=== PATIENT | female | born 1990 | race Caucasian/White ===

== ENCOUNTER 2023-03-20 09:00 | Outpatient (NON) | payer OTHER, SELFPAY | END 2023-03-20 09:01 | disposition home or self-care (01) | LOC: ANHLAB 03-21 11:48 | PROVIDERS: PCP Family Medicine; Visit Provider Nurse Practitioner | DX: R22.9 Localized swelling, mass and lump, unspecified (principal); D48.5 Neoplasm of uncertain behavior of skin | CPT/HCPCS: 88304; 88305 ==

== ENCOUNTER 2023-04-16 15:35 | Outpatient (NON) | payer OTHER, SELFPAY | END 2023-04-16 15:36 | disposition home or self-care (01) | LOC: ANHLAB 15:36 | PROVIDERS: PCP Family Medicine; Visit Provider Nurse Practitioner | DX: D22.9 Melanocytic nevi, unspecified (principal) | CPT/HCPCS: 88305 ==

== ENCOUNTER 2024-12-01 10:01 | Outpatient (CLI) | payer OTHER, SELFPAY ==
--- OUTSIDE RECORDS SUMMARY | 2024-12-01 10:51 | XMS_ITS | Clinical Summary ---
Author Organization [facility] [employer] Address [address] [place] [address] Care Team Providers Care Sales Service Representative Name Role Phone Unavailable Primary Care Provider Unavailabl e Source Comments [facility] [employer],non-owned Affiliates and Associated Physician Practices is amultiple site organization consisting of ambulatory clinics and hospital sitesin [place], [place], [place] and [place]. This disclosure is being madepursuant to the Care Everywhere program and may not contain all information available regarding this patient. Last updated 18.[facility] [employer] Allergies No known active allergies Medications * Be aware that medications may not be up to date on this document. Alwaysverify current medications with the patient. hydroxychloroqui ne (Plaquenil) 200 MG tablet Take 1 (one) tablet by mouth 2 times daily 05/03/2023 Active MAGNESIUM OXIDE 400 PO Take 400 mg by mouth once daily Active cetirizine (ZyrTEC) 10 MG tabletIndication s:Nasal congestion Take 1 (one) tablet by mouth once daily 30 tablet 06/04/2023 Active Cyanocobalamin (Rapid B-12 Energy) 200 MCG/SPRAY Active COLLAGEN-VITAMIN C-BIOTIN PO Take by mouth once daily Active folic acid 400 MCG tablet Take by mouth once daily Active Encounters Date Type Department Care Team Description 11/03/2024 12:45 PM CDT Office Visit [facility] [address], [address] [place] [address] Rito Olson MD Nasal deformity, acquired (Primary Dx) 11/03/2024 Travel from Last 3 Months Immunizations Immunization Administration Dates Next Due INFLUENZA VACCINE, TRIV. (AF LURIA, FLUZONE TRIVALENT; 6MO+) (IIV3) 05/02/2011 Covid Legend of the Elf primary monoval ent 12+ yr 0.3mL Purple cap 05/10/2022,05/07/2021,11/07/2020,2020 INFLUENZA VACCINE, CELL CULT URE, QUADR. (FLUCELVAX QUADRIVALENT; 6MO+) (CCIIV4) 04/20/2019 INFLUENZA VACCINE, QUADR. (F LUZONE; FLULAVAL; FLUARIX; AFLURIA QUADRIVALENT; 6MO+), 0.5 ML (IIV4) 06/13/2023,05/10/2022 INFLUENZA VACCINE, RECOM-BARRERA, TRIV. (FLUBLOCK TRIVALENT; 18Y+) (RIV3) 04/29/2014 TDAP (7yrs+) 02/20/2022,02/26/2019 VARICELLA 06/28/2019 Family History Medical History Relation Name Comments Anxiety Disorder Father Depression Father Hyperlipidemia Father Hypertension Father Anxiety Disorder Mother Depression Mother Relation Name Status Comments Father Mother Social History Tobacco Use Types Packs/Day Years Used Date Smoking Tobacco: Never Smokeless Tobacco: Never Tobacco Cessation:Counseling Given: Not Answered Alcohol Use Standard Drinks/Week Comments Yes 0 (1 standard drink = 0.6 oz pur e alcohol) Comments Unknown Sex and Gender Information Value Date Recorded Sex Assigned at Female 05/22/2023 10:17 AM CDT Legal Sex Female 10:56 AM CDT Gender Identity Not on file Sexual Orientation Not on file Last Filed Vital Signs Vital Sign Reading Time Taken Comments Blood Pressure 139/80 11/03/2024 12:46 PM CDT Pulse 80 11/03/2024 12:46 PM CDT Temperature - - Respiratory Rate - - Oxygen Saturation - - Inhaled Oxygen Concentration - - Weight 63.5 kg (140 lb) 11/03/2024 12:46 PM CDT Height 160 cm (5' 3 ) 11/03/2024 12:46 PM CDT Body Mass Index 24.8 11/03/2024 12:46 PM CDT Plan of Treatment Health Maintenance Due Date Last Done Comments PAP SMEAR 1992 HIV SCREENING 01/15/2007 HEPATITIS C SCREENING 01/11/2010 HEPATITIS B VACCINE (1 of 3 - 19+ 3-dose series) 01/15/2011 COVID-19 VACCINE ( season) 2024 05/10/2022, 05/07/2021, 11/07/2020, Additional history exists DEPRESSION SCREENING 07/30/2024 INFLUENZA VACCINE (Season Ended) 2025 06/13/2023, 05/10/2022, 05/04/2021, Additional history exists DTAP/TDAP/TD VACCINES (3 - Td or Tdap) 02/21/2032 02/20/2022, 02/26/2019 ZOSTER VACCINE (1 of 2) 01/15/2042 HIB VACCINE Aged Out No longer eligi ble based on patient's age to complete this topic HPV VACCINE Aged Out No longer eligi ble based on patient's age to complete this topic MENINGOCOCCAL (Group B) VACCINE SHARED DECISION-MAKING Aged Out No longer eligible based on patient's age to complete this topic MENINGOCOCCAL GROUPS A/C/Y/W VACCINE Aged Out No longer eligible based on patient's age to complete this topic PNEUMOCOCCAL VACCINE Aged Out No long er eligible based on patient's age to complete this topic Insurance [facility] CIGNA CIGNA CIGNA
--- OUTSIDE RECORDS SUMMARY | 2024-12-01 10:51 | XMS_ITS | Clinical Summary ---
Author Organization [facility] Address [address] [place] [address] Care Team Providers Care Filler Shredder Machine Name Role Phone None, Provider MD Primary Care Provider Unavaila ble Allergies No known active allergies Medications Cyanocobalamin (RAPID B-12 ENERGY) 200 MCG/SPRAY Liquid Active hydroxychloroqu ine (PLAQUENIL) 200 MG tablet Take 1 tablet (200 mg total) by mouth 2 (two) times daily. 07/28/2024 Active Collagen-Vitami n C-Biotin (COLLAGEN) 500-50-0.8 MG Cap Active magnesium oxide (MAG-OX) 250 MG tablet Take 400 mg by mouth daily. Active probiotic (FLORAJEN3) Cap capsule Take 1 capsule by mouth 3 (three) times daily with meals. Active Active Problems Problem Noted Date Diagnosed Date Abnormal uterine bleeding (AUB) 05/27/2024 Iron deficiency anemia, unspecified 04/10/2024 Long-term use of hydroxychloroquine 06/13/2023 Gastroesophageal reflux disease 12/13/2013 Overview (09/17/2024): Acid reflux Rhe[facility]oid [facility] ([facility]) 4 Overview (09/17/2024): Rheumatoid arthritis Last Assessment & Plan: Asymptomatic on current therapy. Continue HCQ 200 mg bid. Eye exam due next February. Depression 11/17/2013 Overview (09/17/2024): DEPRESSIVE DISORDER NEC Neuropathy 06/09/2013 Overview (09/17/2024): Neuropathy Backache 02/28/2013 Overview (09/17/2024): Back pain Encounters Date Type Department Care Team Description 09/17/2024 1:20 PM WINE PASTEURIZER Office Visit [facility] [address] [address] Danelle Gramajo, [place] Ear Problem (Still having pressure to right ear-took 10 supply of a/b-having a lot of vertigo, pressure) 09/17/2024 Travel from Last 3 Months Immunizations Immunization Administration Dates Next Due Flublok (RIV3, Trivalent, 0.5mL) 04/29/2014 Hepatitis A (Havrix [address]) 09/09/2012 Influenza (Generic) 05/02/2011 Influenza Adult (Generic) 06/13/2023,06/2022,05/04/2021,2020,04/20/2019 PFIZER COVID-19 (ORIGINAL FORMULATION, PURPLE CAP) mRNA, LNP-S, PF, 30 MCG/0.3 ML DOSE 05/10/2022 Tdap (Generic) 02/20/2022,02/26/2019 Varicella (Varivax) 06/28/2019 Family History Medical History Relation Comments Hyperlipidemia Father Hypertension Father Lupus Mother Relation Status Comments Brother Alive Father Alive Mother Alive Social History Tobacco Use Types Packs/Day Years Used Date Smoking Tobacco: Never Passive Smoke Exposure: Never Smokeless Tobacco: Never Tobacco Cessation:Counseling Given: No Alcohol Use Standard Drinks/Week Comments Yes 0 (1 standard drink = 0.6 oz pur e alcohol) PHQ-2 Answer Date Recorded Patient Health Questionnaire-2 Score 0 09/17/2024 Comments Unknown Sex and Gender Information Value Date Recorded Sex Assigned at Not on file Legal Sex Female 1:17 PM WINE PASTEURIZER Gender Identity Not on file Sexual Orientation Not on file Last Filed Vital Signs Vital Sign Reading Time Taken Comments Blood Pressure 98/63 09/17/2024 1:46 PM WINE PASTEURIZER Pulse 93 09/17/2024 1:46 PM WINE PASTEURIZER Temperature 36.6 C (97.9 F) 09/17/2024 1:46 PM WINE PASTEURIZER Respiratory Rate 20 09/17/2024 1:46 PM WINE PASTEURIZER Oxygen Saturation 99% 09/17/2024 1:46 PM WINE PASTEURIZER Inhaled Oxygen Concentration - - Weight 65.8 kg (145 lb) 09/17/2024 1:46 PM WINE PASTEURIZER Height 157.5 cm (5' 2 ) 09/17/2024 1:46 PM WINE PASTEURIZER Body Mass Index 26.52 09/17/2024 1:46 PM WINE PASTEURIZER Plan of Treatment Health Maintenance Due Date Last Done Comments Annual Physical 01/15/1995 Hepatitis C 01/15/2010 Hepatitis B Vaccines (1 of 3 - 19+ 3-dose series) 01/15/2011 Cervical Cancer Screening Pap with HPV Testing (Age 30 to 64) Every 5 Years 01/15/2022 COVID-19 Vaccine ( season) 2024 05/10/2022, 05/10/2022, 05/07/2021, Additional history exists Cervical Cancer Screening Pap Smear (Age 30 to 64) Every 3 Years 10/05/2024 10/05/2021 Cervical Cancer Screening with HPV 10/05/2024 DTaP, Tdap and Td Vaccines (3 - Td or Tdap) 02/21/2032 02/20/2022, 02/26/2019 PHQ-2 (Physician [place]) Completed 09/17/2024 HPV Vaccines Aged Out No longer eligi ble based on patient's age to complete this topic Meningococcal B Vaccine Aged Out No l onger eligible based on patient's age to complete this topic Meningococcal Vaccine Aged Out No roman fidel eligible based on patient's age to complete this topic Pneumococcal Vaccine: Pediatrics (0 to 5 Years) and At-Risk Patients (6 to 49 Years) Aged Out No longer eligible based on patient's age to complete this topic RSV Immunizations Under 20 Months Aged Out No longer eligible based on patient's age to complete this topic Insurance [facility] Care Teams Filler Shredder Machine Relationship Specialty Start Date End Date None, Provider, PCP - General UNKNOWN PHYSICIAN SPECIALTY 09/17/24
--- OUTSIDE RECORDS SUMMARY | 2024-12-01 10:51 | XMS_ITS | Clinical Summary ---
Author Organization [facility] [employer] [place] Address [address] [address] Care Team Providers Care Head Control Clerk Name Role Phone Unavailable Primary Care Provider Unavailabl e Allergies No known active allergies Medications MAGNESIUM ORAL Take 250 mg by mouth daily. Active hydroxychloroqui ne (PLAQUENIL) 200 mg tablet Take 200 mg by mouth 2 times daily. 3 Active esomeprazole (NexIUM) 40 mg Capsule, Delayed Release(E.C.)Ind ications:Gastroe sophageal reflux disease, unspecified whether esophagitis present Take 1 Capsule (40 mg) by mouth daily before breakfast. 30 Capsule 3 Active Additional Information Patient not taking.Reported on 10/29/2023 cetirizine (ZyrTEC) 10 mg tablet Take 10 mg by mouth daily. 3 Active Active Problems Problem Noted Date Diagnosed Date Rheumatoid arthritis 12/13/2013 Overview (05/30/2023): Rheumatoid arthritis Last Assessment & Plan: Asymptomatic on current therapy. Continue HCQ 200 mg bid. Eye exam due next February. Encounters Date Type Department Care Team Description 10/28/2024 External Device Data [facility] ABSTRACTION Provider, Abstract 09/30/2024 External Device Data [facility] ABSTRACTION Provider, Abstract 09/17/2024 External Device Data [facility]STRA[facility] Provider, Abstract from Last 3 Months Family History Medical History Relation Name Comments Anxiety Brother Depression Brother Anxiety Father High Cholesterol Father Hypertension Father Colon Cancer Maternal Grandfather Rheumatoid Arthritis Maternal Grandfather COPD Maternal Grandmother Lung Cancer Maternal Grandmother SLE Maternal Grandmother Diabetes Maternal Uncle Anxiety Mother Depression Mother SLE Mother Heart Attack Paternal Grandfather High Cholesterol Paternal Grandfather Hypertension Paternal Grandfather Dementia Paternal Grandmother Relation Name Status Comments Brother Alive Daughter Alive Father Alive Maternal Grandfather Maternal Grandmother Maternal Uncle Alive Mother Alive Paternal Grandfather Paternal Grandmother Alive Son Alive Social History Tobacco Use Types Packs/Day Years Used Date Smoking Tobacco: Never Smokeless Tobacco: Never Tobacco Cessation:Counseling Given: Not Answered Alcohol Use Standard Drinks/Week Comments Yes 0 (1 standard drink = 0.6 oz pur e alcohol) 2 drinks a month Comments No Sex and Gender Information Value Date Recorded Sex Assigned at Not on file Legal Sex Female 11:34 AM CDT Gender Identity Not on file Sexual Orientation Not on file Last Filed Vital Signs Vital Sign Reading Time Taken Comments Blood Pressure 116/58 10/29/2023 1:18 PM CDT Pulse - - Temperature 36.8 C (98.2 F) 05/30/2023 1:57 PM CDT Respiratory Rate - - Oxygen Saturation - - Inhaled Oxygen Concentration - - Weight 63.3 kg (139 lb 9.6 oz) 05/30/2023 1:57 P M CDT Height 156.2 cm (5' 1.5 ) 05/30/2023 1:57 PM CDT Body Mass Index 25.95 05/30/2023 1:57 PM CDT Plan of Treatment Health Maintenance Due Date Last Done Comments HEPATITIS B VACCINES (1 of 3 - 19+ 3-dose series) 01/15/2011 HPV/Cotest (21-29) 01/15/2013 HPV/Cotest (30-65) 01/15/2022 INFLUENZA VACCINE (#1) 2024 , 05/10/2022, 04/20/2019, Additional history exists CERVICAL CANCER SCREENING 10/05/2024 PAP SMEAR 10/05/2024 10/05/2021 DTAP/TDAP/TD VACCINES (3 - Td or Tdap) 02/21/2032 02/20/2022, 02/26/2019 HPV VACCINES Aged Out No longer eligi ble based on patient's age to complete this topic Insurance [employer] * Guarantor: CONSTANZA HASSAN-Educanon A PALAK Slater (C) Account Type Relation to Patient Date of Phone Billing Address Corporate Employer ATTN: PAUL [employer] [id number] [address] [employer]
== END 2024-12-01 10:02 | disposition home or self-care (01) ==
LOC: ANHAUDIO 10:02
PROVIDERS: PCP Family Medicine; Visit Provider Otolaryngology
DX: H93.11 Tinnitus, right ear (principal)
CPT/HCPCS: 92557; 92567